=== PATIENT | male | born 1980 | race Caucasian/White ===

== ENCOUNTER 2022-12-24 08:52 | Emergency (ER) | payer OTHER ==
[~2022-12-24] VITALS: Ht 180.3 cm; Wt 115.0 kg
[2022-12-24 09:14] VITALS: BP 151/86
[2022-12-24] MEDS ORDERED: proCHLORperazine 10 MG/2 ml inj IV ONE (10:40)
[2022-12-24] MEDS ORDERED: famotidine/PF 10 mg/ml inj IV ONE (10:40)
[2022-12-24] MEDS ORDERED: normal saline 1000ml 1,000 ML IV ONE (10:40)
[2022-12-24] MEDS ORDERED: ONDA4TAB12 PO ×2 (11:42→11:46)
[2022-12-24] MEDS ORDERED: FAMO20TA47 PO ×2 (11:42→11:46)
== END 2022-12-24 12:25 | disposition home or self-care (01) ==
LOC: ER 08:53
DX: K29.00 Acute gastritis without bleeding (principal); R11.2 Nausea with vomiting, unspecified; E78.00 Pure hypercholesterolemia, unspecified; I10 Essential (primary) hypertension; F12.90 Cannabis use, unspecified, uncomplicated; F17.200 Nicotine dependence, unspecified, uncomplicated; Z88.8 Allergy status to other drugs, medicaments and biological substances
CPT/HCPCS: 96374; 96375; 99284; J0780; J3490; J7030